=== PATIENT | female | born 1995 | race African-American/Black ===

== ENCOUNTER 2017-06-26 16:11 | Emergency (ER) | payer SELFPAY ==
[~2017-06-26] VITALS: Ht 170.2 cm; Wt 91.0 kg
[2017-06-27 00:15] VITALS: BP 131/75
== END 2017-06-27 00:15 | disposition home or self-care (01) ==
LOC: ER 17:47
DX: K62.5 Hemorrhage of anus and rectum (principal)
CPT/HCPCS: 81025; 99283

== ENCOUNTER 2020-07-11 15:27 | Emergency (ER) | payer MEDICAID ==
[~2020-07-11] VITALS: Ht 167.6 cm; Wt 106.0 kg
[2020-07-11 16:03] VITALS: BP 123/90
[2020-07-11 17:36] LABS: CLARITY URINE CLEAR (CLEAR); COLOR URINE YELLOW (YELLOW); KETONES URINE NEGATIVE (NEGATIVE); LEUKOCYTE ESTERASE URINE NEGATIVE (NEGATIVE); NITRITE URINE NEGATIVE (NEGATIVE); OCCULT BLOOD URINE NEGATIVE (NEGATIVE); PROTEIN URINE NEGATIVE (NEGATIVE); SPECIFIC GRAVITY URINE 1.005 (1.005-1.030); UROBILINOGEN URINE 0.2 E.U./dL (0.2-1.0)
== END 2020-07-11 19:10 | disposition home or self-care (01) ==
LOC: ER 15:27
DX: R10.2 Pelvic and perineal pain (principal)
CPT/HCPCS: 81003; 99283

== ENCOUNTER 2021-01-14 05:33 | Observation (INO) | payer MEDICAID | END 2021-01-14 08:19 | disposition home or self-care (01) | LOC: 8 EST LDRP 05:33 | PROVIDERS: ADMIT Obstetrics & Gynecology; ATTEND Obstetrics & Gynecology | DX: O36.8130 Decreased fetal movements, third trimester, not applicable or unspecified (principal); O24.419 Gestational diabetes mellitus in pregnancy, unspecified control; Z3A.36 36 weeks gestation of pregnancy | CPT/HCPCS: 59025; 76805; 76817; 76818; G0378; 99281 ==